=== PATIENT | male | born 1980 | race Caucasian/White ===

== ENCOUNTER → 2017-06-04 | Outpatient (CLI) | payer OTHER ==
[~2017-06-04] MED LIST: DULO1CAP3 PO; GABA300C5 PO; LISI10TA3 PO; OXYC-395 PO; RANI150T PO
[2017-06-04 14:08] LABS: CREATININE 1.01 MG/DL (0.60-1.30)
== END ==
LOC: CLAB 13:33
PROVIDERS: ATTEND Internal Medicine Gastroenterology
DX: R10.9 Unspecified abdominal pain (principal)
CPT/HCPCS: 36415; 82150; 82565; 83690; 84520